=== PATIENT | male | born 1950 | race African-American/Black ===

== ENCOUNTER 2021-03-20 18:24 | Inpatient (IN) | payer MEDICARE, MEDICAID ==
[~2021-03-20] VITALS: Ht 180.3 cm; Wt 94.3 kg
[2021-03-20 19:23] LABS: BASOPHILS % 0.8 % (0.0-2.0); EOSINOPHILS % 1.1 % (0.0-5.0); HEMATOCRIT. 42.9 % (42.0-52.0); LYMPHOCYTES % 29.2 % (20.0-50.0); MEAN CORPUSCULAR HEMOGLOBIN 26.8 pg (28.0-32.0); MEAN CORPUSCULAR VOLUME 81.8 fL (80.0-94.0); MEAN PLATELET VOLUME 8.4 fl (7.4-10.4); MONOCYTES % 8.9 % (2.0-8.0); PLATELET 254 x1000/uL (130-400); RED BLOOD CELL COUNT 5.24 mill/uL (4.7-6.1); RED CELL DISTRIBUTION WIDTH 15.5 % (11.6-14.6)
[2021-03-20 19:30] LABS: CHLORIDE 109 mEq/L (98-107)
[2021-03-20 19:40] LABS: D-DIMER 0.31 mg/L FEU (<0.50); INR 1.1; PARTIAL THROMBOPLASTIN TIME 28.4 sec (23.4-31.0); PROTHROMBIN TIME 11.4 sec (9.6-11.0)
[2021-03-20] MEDS: ASPIRIN 81MG TABLET PO ONE ×2 (19:40→19:41)
[2021-03-20] MEDS ORDERED: CLONIDINE 0.2MG TABLET PO ONE (22:00)
[2021-03-20] MEDS ORDERED: HYDRALAZINE 20MG/ML VIAL IV PRN (22:32)
[2021-03-20] MEDS: KETOROLAC 30MG/ML VIAL IV PRN (23:11)
[2021-03-21] MEDS ORDERED: ONDANSETRON HCL 4MG/2ML INJ IV PRN (00:30)
[2021-03-21] MEDS ORDERED: ACETAMINOPHEN 325MG TABLET PO PRN ×2 (00:30)
[2021-03-21] MEDS ORDERED: DIPHENHYDRAMINE 50MG/ML VIAL IV PRN (00:30)
[2021-03-21] MEDS ORDERED: CLONIDINE 0.2MG TABLET PO PRN ×2 (01:00→15:00)
[2021-03-21] MEDS: SODIUM CHLORIDE 0.9% INJ 3ML FLUSH IVF SCH ×2 (08:00→16:35)
[2021-03-21] MEDS ORDERED: BENAZEPRIL 10MG TABLET PO SCH (09:00)
[2021-03-21] MEDS: KETOROLAC 30MG/ML VIAL IV PRN ×2 (09:51→19:36)
[2021-03-21] MEDS: ASPIRIN 81MG EC TABLET PO SCH ×2 (09:51→10:01)
[2021-03-21] MEDS: AMLODIPINE 5MG TABLET PO SCH ×2 (09:52→20:06)
[2021-03-21] MEDS: ENOXAPARIN 40MG/0.4ML SYR SUBCUT SCH (09:53)
[2021-03-21 17:00] VITALS: BP 143/107
[2021-03-21] MEDS: BENAZEPRIL 10MG TABLET PO SCH (17:26)
[2021-03-21 17:54] VITALS: BP 143/107
[2021-03-21 18:41] VITALS: BP 175/92
[2021-03-21] MEDS: HYDROCODONE/ACETAMINOPHEN 5/325MG TABLET PO PRN (19:59)
[2021-03-21 20:00] VITALS: BP 169/98
[2021-03-21] MEDS ORDERED: ZOLPIDEM TARTRATE 5MG TABLET PO PRN (21:00)
[2021-03-21 22:00] VITALS: BP 154/74
[2021-03-22] VITALS (9 sets, daily range): BP systolic 128–168; BP diastolic 69–84
[2021-03-22] MEDS: HYDROCODONE/ACETAMINOPHEN 5/325MG TABLET PO PRN ×2 (02:18→08:14)
[2021-03-22] MEDS: SODIUM CHLORIDE 0.9% INJ 3ML FLUSH IVF SCH ×2 (08:09)
[2021-03-22] MEDS: ASPIRIN 81MG EC TABLET PO SCH (08:09)
[2021-03-22] MEDS: BENAZEPRIL 10MG TABLET PO SCH (08:10)
[2021-03-22] MEDS: ENOXAPARIN 40MG/0.4ML SYR SUBCUT SCH (08:10)
[2021-03-22] MEDS: AMLODIPINE 5MG TABLET PO SCH (08:10)
== END 2021-03-22 15:18 | disposition home or self-care (01) | DRG 206 ==
LOC: ER 18:24 → 3WST 21:33 → EDBEDREQ 22:05 → ENRESERV 03-21 15:29
PROVIDERS: ADMIT Internal Medicine; ATTEND Internal Medicine
DX: M94.0 Chondrocostal junction syndrome [Tietze] (principal); I25.10 Atherosclerotic heart disease of native coronary artery without angina pectoris; I10 Essential (primary) hypertension; I25.2 Old myocardial infarction; Z59.0 Homelessness; Z79.82 Long term (current) use of aspirin; Z86.16 Personal history of COVID-19; I16.0 Hypertensive urgency; E87.8 Other disorders of electrolyte and fluid balance, not elsewhere classified
CPT/HCPCS: 36415; 71045; 80053; 83880; 84484; 85025; 85379; 93005; 93306; 99285; J1650; J1885